=== PATIENT | male | born 1980 | race Caucasian/White ===

== ENCOUNTER 2020-10-14 12:30 | Emergency (ER) | payer OTHER ==
[2020-10-14 12:37] VITALS: BP 116/76; PULSE 85; O2SAT 98
--- NOTE | 2020-10-14 13:02 | ERPHSYRPT ---
- History of Present Illness Time Seen by Provider: 10/14/20 12:32 Source: patient Exam Limitations: no limitations Patient Subjective Stated Complaint: fishing hook in L cheek Triage Nursing Assessment: pt to ED with c/o fish hook in cheek. pt was fishing and got look lodged in L cheek. denies pain currently. reports up to date on tetanus vaccine. no bleeding on arrival Physician History: 40 years old male presented in the ER with chief complaint of fishhook sticking in the left lower jaw around angle of mandible while he was trying to catch a fish. Complaining of dull aching to sharp pain mild to moderate intensity with movements of hook. Up-to-date with tetanus. Timing/Duration: today, sudden Severity: mild Allergies/Adverse Reactions: acetaminophen [From [place]] Allergy (Mild, Verified 10/14/20 12:37) Itching hydrocodone [From [place]] Allergy (Mild, Verified 10/14/20 12:37) Itching Hx Tetanus, Diphtheria Vaccination/Date Given: Yes Hx Influenza Vaccination/Date Given: Yes Immunizations Up to Date: Yes Travel Risk - International Travel Have you traveled outside of the country in past 3 weeks: No - Coronavirus Screening Are you exhibiting any of the following symptoms?: No Close contact with a COVID-19 positive Pt in past 14-21 Days: No - Vaccine Status Have you recieved a Covid-19 vaccination: No - Review of Systems Constitutional: No Symptoms Eyes: No Symptoms Ears, Nose, & Throat: Mouth Swelling Respiratory: No Symptoms Cardiac: No Symptoms Abdominal/Gastrointestinal: No Symptoms Musculoskeletal: Injury Skin: Skin Lesions Neurological: No Symptoms Psychological: No Symptoms - Past Medical History Pertinent Past Medical History: Yes Cardiac History: Arrhythmia - Past Surgical History Past Surgical History: No - Social History Smoking Status: Never smoker Exposure to second hand smoke: No Drug Use: marijuana Patient Lives Alone: No - Nursing Vital Signs Nursing Vital Signs: Initial Vital Signs Temperature 98.0 F 10/14/20 12:33 Pulse Rate 85 10/14/20 12:33 Respiratory Rate 18 10/14/20 12:33 Blood Pressure 116/76 10/14/20 12:33 O2 Sat by Pulse Oximetry 98 10/14/20 12:33 Pain Scale Pain Intensity 0 - Physical Exam General Appearance: no apparent distress, alert Eye Exam: PERRL/EOMI, eyes nml inspection Ears, Nose, Throat Exam: TMs normal, pharynx normal, other ([place] embedded in the left lower lateral jaw skin closer to angle of mandible. No active bleeding.) Neck Exam: normal inspection, non-tender, supple, full range of motion Respiratory Exam: normal breath sounds, lungs clear Cardiovascular Exam: regular rate/rhythm, normal heart sounds Extremity Exam: normal inspection, normal range of motion Neurologic Exam: alert, oriented x 3, cooperative Skin Exam: normal color SpO2 Interpretation: normal SpO2: 98 O2 Delivery: Room Air Procedures - Additional Procedures Progress: Foreign body skin removal procedure note. Time 12:40 PM. Have embedded hook with pete inside the skin. Anesthesia 1% lidocaine 1 mL given. Pushed all the way out and fishhook was cut and removed. - Progress Progress Note: 10/14/20 13:01 [place] is removed under local anesthesia. Patient is given prophylactic antibiotics. Up-to-date with tetanus. Counseled pt/family regarding: diagnosis, need for follow-up - Departure Departure Disposition: Home Clinical Impression: Foreign body of face, superficial Qualifiers: Encounter type: initial encounter Qualified Code(s): S00.85XA - Superficial foreign body of other part of head, initial encounter Condition: Stable Critical Care Time: No Referrals: Provider,Unknown [Primary Care Provider] - HUMPHREY BARDALES MD [ACTIVE STAFF] - (In 2 days for reevaluation) Instructions: Removal of Foreign Body in Skin Additional Instructions: Keep it clean. Take Tylenol/ibuprofen as needed for pain. Continue with antibiotics. Follow-up with primary care for reevaluation. Return to ER for increasing pain swelling redness discharge/fever or chills. Prescriptions: Ibuprofen 600 mg PO Q6HPRN PRN 10 Days #20 tablet PRN Reason: Pain Cephalexin Mh 500 mg [Keflex 500 mg] 500 mg PO TID #21 capsule
== END 2020-10-14 13:14 | disposition home or self-care (01) ==
LOC: ED 12:30
DX: S00.85XA Superficial foreign body of other part of head, initial encounter (principal); W26.9XXA Contact with unspecified sharp object(s), initial encounter
CPT/HCPCS: 99283